=== PATIENT | male | born 1980 | race Two or more races ===

== ENCOUNTER 2025-05-17 15:46 | Inpatient (IN) | payer SELFPAY ==
[2025-05-17 15:59] VITALS: BP 152/78; PULSE 82; RESP 20; TEMP 37.7; O2SAT 97; BMI 34.9
--- NOTE | 2025-05-17 16:11 | XR_ITS ---
Examination: PA lateral chest 2 views Technique: Upright PA lateral chest 2 views Date and time: May 17, 2025, 1623 hrs. Indications: Coughing swelling headaches beginning 5 days ago. Findings: 4.6 cm dense consolidation versus pulmonary mass in the posterior left upper lobe, which actually may be in the superior segment of the left lower lobe Prominent left hilum Normal heart size Impression: Recommend CT chest without contrast follow-up to assess 4.6 cm dense consolidation versus pulmonary mass in the left lung
--- NOTE | 2025-05-17 16:12 | EDNOTE_ITS ---
ED General RME/HPI General Chief complaint: General Adult/Misc Complain Stated complaint: NOT SWEATING, DIZZY, FEVER, CRANE Time Seen by Provider: 05/17/25 16:00 Arrival date/time: 05/17/25 15:46 44-year-old male, traveling from [place], reports with complaints of 2 to 3-day history of fever headaches cough congestion and fatigue. Per states that has been taken [id number] medications with no improvement of symptoms. Patient denies any chest pain shortness of breath or abdominal pain. Patient states he vomited once today but he attributed to being out in the heat. He denies known TB exposures or history of TB. Limitations: no limitations Related Data Home Medications ?Medication ?Instructions ?Recorded ?Confirmed atorvastatin 10 mg tablet 10 mg PO DAILY 05/17/2512/06 ibuprofen 800 mg tablet 800 mg PO PRN PRN pain 05/1705/17/25 pantoprazole 40 mg tablet,delayed 40 mg PO DAILY 05/1705/17/25 release Allergies Allergy/AdvReac Type Severity Reaction Status Date / Time No Known Allergies Allergy Verified 05/17/25 15:50 Review of Systems Constitutional Constitutional: Denies chills, Reports fever(s) and Denies headache(s) ENT Ears, Nose, Mouth, and Throat: Denies otalgia, Denies headache(s) and Denies post nasal drip Cardiovascular Cardiovascular: Denies chest pain, Denies dyspnea and Denies syncope Respiratory Respiratory: Reports cough and Denies dyspnea Gastrointestinal Gastrointestinal: Denies abdominal pain, Reports nausea and Reports vomiting Musculoskeletal Musculoskeletal: Reports arthralgias and Reports myalgias Integumentary/Breasts Skin/Breast: Denies skin swelling and Denies unusual bruising Neurologic Neurologic: Denies headache(s) and Denies syncope Past Medical History Social History SMOKING STATUS: Current some day smoker ED Exam General Limitations: Present no limitations General appearance: Present alert and in no apparent distress Head Head exam: Present atraumatic Eye Eye exam: Present normal appearance, PERRL and EOMI ENT ENT exam: Present normal exam, normal oropharynx and mucous membranes moist Neck Neck exam: Present normal inspection, full ROM and trachea midline Chest Chest inspection: Present normal inspection and symmetric chest wall rise Respiratory Respiratory exam: Present normal lung sounds bilaterally Cardiovascular Cardiovascular exam: Present regular rate, normal rhythm and normal heart sounds Abdominal Exam Abdominal exam: Present soft and normal bowel sounds Extremities Exam Extremities exam: Present normal inspection and full ROM Back Exam Back exam: Present normal inspection and full ROM Neurological Exam Neurological exam: Present alert, oriented X3 and CN II-XII intact Psychiatric Psychiatric exam: Present normal affect and normal mood Skin Skin exam: Present warm, dry, intact and normal color Course Course Course Narrative: [facility] [address] [place] [address] [facility] Report Signed Patient: SHAWNA MOREL Record#: [id number] Birthdate: 1980 Age/Sex: 44 / M Location: [facility] Attending Dr: Ordering Physician: Alonso Ramachandran PA-C Date of Service: 05/17/25 Procedure(s): CT chest wo con Accession Number(s): [id number] cc: Dylan Chen MD; NO PRIMARY/FAMILY,PHYSICIAN; Alonso Ramachandran PA-C~ Examination: CT chest, without intravenous contrast. Sagittal and coronal 2-D reconstructions. Exam date and time: May 17, 2025, 1832 hrs. Indications: Congestion coughing fever beginning 3 days ago, dense consolidation versus pulmonary mass in the left lung 4.6 cm on chest x-ray today CTDI:vol (mGy) 14.9 DLP: (mGycm) 534 Technique: Multiple 3.0 mm axial sections of the chest to been obtained. Bone and lung density settings are obtained. Sagittal and coronal 2-D reconstructions have been obtained. Low dose protocols were performed. One or more of the following dose reduction techniques were used; automated exposure control, adjustment of the mA and/or KV according to patient size, use of iterative reconstruction technique. Findings: No thoracic aortic aneurysm dilatation Pulmonary artery segments are not enlarged. Mild calcification left anterior descending coronary artery. No paratracheal tracheobronchial or bronchopulmonary adenopathy. Cavitary pulmonary mass, 2.6 x 3.6 cm in the superior segment left lower lobe Too numerous to count bilateral subcentimeter pulmonary nodules No visualized liver or splenic lesion Contracted gallbladder No pancreatic mass No hydronephrosis Impression: 3.6 x 2.6 cm cavitary mass in the superior segment left lower lobe with numerous bilateral subcentimeter pulmonary nodules Highest on the differential list is infectious processes including active tuberculosis, coccidioidomycosis, pulmonary neoplasm less likely but not excluded Dictated By: Dylan Chen MD Signed By: <Electronically signed by Dylan Chen MD in OV> 05/17/25 185 DD/ 184 TD/TT: 05/17/25 184 Orthodontic Laboratory Technician: ROMEL Quality Measures none Orders Category Date Time Status Admit to Inpatient Status Routine Admission 05/17/25 22:09 Active Patient Condition Routine Admission 05/17/25 22:09 Ordered Activity as Tolerated Routine Care 05/17/25 22:10 Ordered Bedside COVID-19 Antigen Test NOW Care 05/17/25 16:11 Active Bedside Influenza A&B Antigen Test NOW Care 05/17/25 16:11 Completed COVID-19 Screening Questionnaire NOW Care 05/17/25 21:28 Active Decision to Admit X1 Care 05/17/25 21:28 Completed Flu & Pneumonia Vaccine Screen ONCE Care 05/17/25 22:08 Active Notify provider NEEDED Care 05/17/25 22:09 Active Sequential Compression Device QSHIFT Care 05/17/25 22:08 Active Diet Regular Diet 05/18/[address] chest wo con Stat Exams 05/17/25 17:52 Completed XR chest 2V Stat Exams 05/17/25 16:11 Completed CBC AM DRAW Lab 05/18/25 05:00 Ordered CBC AM DRAW Lab 05/19/25 05:00 Ordered CBC AM DRAW Lab 05/20/25 05:00 Ordered CBC Stat Lab 05/17/25 17:40 Completed Cocci Serology, Unk History Stat Lab 05/17/25 17:40 Received Comprehensive Metabolic Panel AM DRAW Lab 05/18/25 05:00 Ordered Comprehensive Metabolic Panel AM DRAW Lab 05/19/25 05:00 Ordered Comprehensive Metabolic Panel AM DRAW Lab 05/20/25 05:00 Ordered Magnesium AM DRAW Lab 05/18/25 05:00 Ordered Magnesium AM DRAW Lab 05/19/25 05:00 Ordered Magnesium AM DRAW Lab 05/20/25 05:00 Ordered Phosphorous AM DRAW Lab 05/18/25 05:00 Ordered Phosphorous AM DRAW Lab 05/19/25 05:00 Ordered Phosphorous AM DRAW Lab 05/20/25 05:00 Ordered Thyroid Stimulating Hormone AM DRAW Lab 05/18/25 05:00 Ordered Urinalysis Routine Lab 05/17/25 22:12 Ordered Acetaminophen Tab [Tylenol ES Tab] Med 05/17/25 20:07 Discontinued 1,000 mg PO X1 ONE Acetaminophen Tab [Tylenol Tab] Med 05/17/25 22:08 Active 650 mg PO Q6H PRN Ondansetron Inj [Zofran Inj] Med 05/17/25 22:08 Active 4 mg IVP Q6H PRN Pantoprazole [Protonix] Med 05/18/25 09:00 Active 40 mg PO QDAY Code Status Routine Oth 05/17/25 22:08 Ordered Reevaluation(s) Reevaluation #1: 44-year-old male reports with cough congestion body aches. Patient's chest x- ray and CT indicates consolidation left upper lobe rule out TB versus valley fever. Patient is admitted under the hospitalist in isolation and will be tested for active TB in the morning Vital Signs Vital signs: Vital Signs Temperature 99.9 F 05/17/25 15:59 Pulse Rate 82 05/17/25 15:59 Respiratory Rate 20 05/17/25 15:59 Blood Pressure 152/78 H 05/17/25 15:59 Pulse Oximetry (%) 97 05/17/25 15:59 Oxygen Delivery Method Room Air 05/17/25 15:59 Discharge Plan Plan Patient Disposition: Admit Acute Care w/in Hospital Problem List Clinical Impression: Lower respiratory tract infection MDM Medication Administration(s) Medication Administration History Acetaminophen (Acetaminophen 325 Mg Tablet) 650 mg PO Q6H PRN PRN Reason: PAIN SCALE 1-3 (mild Stop: 06/16/25 22:07 Ondansetron HCl (Ondansetron Inj 2 Mg/Ml Inj 2 Ml) 4 mg IVP Q6H PRN; Protocol PRN Reason: NAUSEA OR VOMITING Stop: 06/16/25 22:07 Pantoprazole Sodium (Pantoprazole 40 Mg Tablet) 40 mg PO QDAY PRISCILLA Stop: 06/17/25 08:59 Discontinued Medications Acetaminophen (Acetaminophen 500 Mg Tablet) 1,000 mg PO X1 ONE Stop: 05/17/25 20:08 Last Admin: 05/17/25 20:21 Dose: 1,000 mg Documented By: CIERA Ibuprofen (Ibuprofen Tab 400 Mg Tablet) 400 mg PO X1 ONE Stop: 05/17/25 23:02 Last Admin: 05/17/25 23:57 Dose: 400 mg Documented By: [email or web address] Sodium Chloride (Sodium Chloride Rt 10% 15 Ml Nebu) 5 ml INH X1 ONE Stop: 05/17/25 23:11 Last Admin: 05/17/25 23:42 Dose: 5 ml Documented By: YAMEL
--- NOTE | 2025-05-17 17:52 | XR_ITS ---
Examination: CT chest, without intravenous contrast. Sagittal and coronal 2-D reconstructions. Exam date and time: May 17, 2025, 1832 hrs. Indications: Congestion coughing fever beginning 3 days ago, dense consolidation versus pulmonary mass in the left lung 4.6 cm on chest x-ray today CTDI:vol (mGy) 14.9 DLP: (mGycm) 534 Technique: Multiple 3.0 mm axial sections of the chest to been obtained. Bone and lung density settings are obtained. Sagittal and coronal 2-D reconstructions have been obtained. Low dose protocols were performed. One or more of the following dose reduction techniques were used; automated exposure control, adjustment of the mA and/or KV according to patient size, use of iterative reconstruction technique. Findings: No thoracic aortic aneurysm dilatation Pulmonary artery segments are not enlarged. Mild calcification left anterior descending coronary artery. No paratracheal tracheobronchial or bronchopulmonary adenopathy. Cavitary pulmonary mass, 2.6 x 3.6 cm in the superior segment left lower lobe Too numerous to count bilateral subcentimeter pulmonary nodules No visualized liver or splenic lesion Contracted gallbladder No pancreatic mass No hydronephrosis Impression: 3.6 x 2.6 cm cavitary mass in the superior segment left lower lobe with numerous bilateral subcentimeter pulmonary nodules Highest on the differential list is infectious processes including active tuberculosis, coccidioidomycosis, pulmonary neoplasm less likely but not excluded
[2025-05-17 18:01] LABS: Basophils # (Auto) 0.1 Thou/mm3 (0.0-0.2); Basophils % (Auto) 1 % (0-2.5); Eosinophils # (Auto) 0.4 Thou/mm3 (0.0-0.5); Eosinophils % (Auto) 4 % (0-10); Hematocrit 39.9 % (41.0-53.0); Hemoglobin 13.9 g/dL (13.5-16.0); Immature Granulocytes Auto 0.07 Thou/mm3 (0.00-0.00); Lymphocytes # (Auto) 1.8 Thou/mm3 (1.0-4.8); Lymphocytes % (Auto) 16 % (10-50); Mean Corpuscular HGB Conc 34.8 g/dl (31.0-37.0); Mean Corpuscular Hemoglobin 29.8 pg (25.0-35.0); Mean Corpuscular Volume 86 fL (80-100); Monocytes # (Auto) 1.2 Thou/mm3 (0.0-0.8); Monocytes % (Auto) 11 % (0-12); Neutrophils # (Auto) 7.9 Thou/mm3 (1.8-7.7); Neutrophils % (Auto) 69 % (37-80); Nucleated Red Blood Cell # 0.00 Thou/mm3 (0.00-0.00); Nucleated Red Blood Cell % 0 /100 WBC (0); Platelet Count 291 Thou/mm3 (140-440); RDW Standard Deviation 36.3 fL (35.1-43.9); Red Blood Count 4.66 Miln/mm3 (4.50-5.90); White Blood Count 11.5 Thou/mm3 (3.8-10.6)
[2025-05-17] MEDS: ACETAMINOPHEN 500 MG TABLET 1000 MG PO (20:21)
[2025-05-17 21:32] VITALS: TEMP 37.9
[2025-05-17 21:33] VITALS: BP 125/82; PULSE 89; RESP 18; TEMP 37.9; O2SAT 97
[2025-05-17 22:59] VITALS: BMI 35.1
[2025-05-17 23:02] VITALS: BP 117/67; PULSE 87; RESP 14; TEMP 37.7; O2SAT 99
--- NOTE | 2025-05-17 23:12 | PD.RESHP ---
Documentation for date of: 05/17/25 HPI History of Present Illness Chief complaint: Fever, chills, bodyaches, headache History of present illness: Angelo is a 44-year-old male with a history of gastric sleeve surgery who the presented to the ED on 05/17/2025 with chief complaints of fever, chills, body ache and headache. Patient reports that since last Thursday he has been feeling fatigued, fever of 102-104, chills, cough,headache, took Tylenol with mild relief. However for the past 2 days worsening in the symptoms but no more cough. Patient reports that he works in a [employer], where he is regularly exposed to significant dust. He states that he typically sweats heavily during outdoor work. However, this morning while working outside in the sun he noticed an absence of sweating despite the high temperature. This unusual change with headache, fever, body aches concerned him, prompting him to present to the ED for evaluation. Patient denies recent sick contact, shortness of breath, hemoptysis, cough, chest pain, weight loss, changes in bowel movement, urinary frequency and urgency. ED Course: -Initial vitals were BP 152/70, pulse 82, respiratory 20, temperature 99.9, O2 sat 99% -Labs significant for WBC 11.5, HCT 39.9, glucose 140, -Imaging included chest x-ray showed 4.6 cm dense consolidation versus pulmonary mass in posterior left upper lobe, chest CT showed cavitary mass in superior segment left lower lobe with numerous bilateral pulmonary nodules -In the ED, patient was given acetaminophen, NS bolus, ibuprofen. -Patient was admitted for TB versus cocci rule out. Review of Systems Review of systems otherwise negative except what is mentioned above. Past Medical History: Hypertension, hyperlipidemia, type 2 diabetes mellitus (resolved s/p gastric sleeve) Family History: Noncontributory Surgical History: Gastric sleeve 2 years ago, cholecystectomy Social History: Denies history of smoking, denies current alcohol use, denies recreational drug use Current Medications: (Source: ) Allergies: No known drug allergies Exam Vital Signs Temp Pulse Resp BP Pulse Ox O2 Del Method 99.8 F 87 14 117/67 99 Room Air 05/17/25 23:02 05/17/25 23:05/17/25 23:05/17/25 23:05/17/25 23:25 23:02 Narrative Exam General: Alert, acute distress.Conversational and non-toxic appearing. Skin: Warm, dry, intact. No rash or ecchymoses. Head: Normocephalic, atraumatic. Eye: Normal conjunctiva, PERRL. Throat: Oral mucosa moist. No obvious lesions in oropharynx. Cardiovascular: Regular rate and rhythm, no murmur, +S1/S2. Respiratory: Lungs are clear to auscultation, respirations unlabored, no crackles, no wheezing. Gastrointestinal: Soft, nontender, non-distended. No guarding or rebound tenderness. Extremities: No edema, no cyanosis, no clubbing. Neuro: Alert and oriented x3.No focal deficits observed. Conversant, moving all extremities. No overt cerebellar signs/incoordination. Psychiatric: Cooperative, appropriate affect Results: Labs 05/18/25 04:58 05/18/25 04:58 Labs: Short CBC 05/17/25 Range/Units 17:40 WBC 11.5 H (3.8-10.6) Thou/mm3 Hgb 13.9 (13.5-16.0) g/dL Hct 39.9 L (41.0-53.0) % Plt Count 291 (140-440) Thou/mm3 Quality Measures Quality Measures none Medications Home Medications and Allergies Home Medications ?Medication ?Instructions ?Recorded ?Confirmed ?Type atorvastatin 10 mg tablet 10 mg PO DAILY 05/17/25 05/17/25 History ibuprofen 800 mg tablet 800 mg PO PRN PRN pain 05/17/25 05/17/25 History pantoprazole 40 mg tablet,delayed 40 mg PO DAILY 05/17/25 05/17/25 History release Allergies Allergy/AdvReac Type Severity Reaction Status Date / Time No Known Allergies Allergy Verified 05/17/25 15:50 Visit Medications Acetaminophen (Acetaminophen 325 Mg Tablet) 650 mg PO Q6H PRN PRN Reason: PAIN SCALE 1-3 (mild Stop: 06/16/25 22:07 Ondansetron HCl (Ondansetron Inj 2 Mg/Ml Inj 2 Ml) 4 mg IVP Q6H PRN; Protocol PRN Reason: NAUSEA OR VOMITING Stop: 06/16/25 22:07 Pantoprazole Sodium (Pantoprazole 40 Mg Tablet) 40 mg PO QDAY PRISCILLA Stop: 06/17/25 08:59 Sodium Chloride (Sodium Chloride Rt 10% 15 Ml Nebu) 5 ml INH X1 ONE Stop: 05/17/25 23:11 Discontinued Medications Acetaminophen (Acetaminophen 500 Mg Tablet) 1,000 mg PO X1 ONE Stop: 05/17/25 20:08 Last Admin: 05/17/25 20:21 Dose: 1,000 mg Ibuprofen (Ibuprofen Tab 400 Mg Tablet) 400 mg PO X1 ONE Stop: 05/17/25 23:02 Assessment & Plan Plan Angelo is a 44-year-old male with a history of gastric bypass surgery, hypertension the presented to the ED on 05/17/2025 with chief complaints of fever, chills, myalgia and headache. Admitted for possible TB vs Coccidioidomycosis rule out and evaluation. # Lower respiratory tract infection # Tuberculosis vs Coccidioidomycosis work up #Pulmonary cavitary lesion #Shortness of breath Patient presented with fever, headache, chills, fatigue, and myalgia concerning for pulmonary infectious process. He reports frequent inhalation of dust while working on an [employer], which increases risk of exposure to airborne pathogens. Given his environmental exposure and symptomology there is concern for tuberculosis versus coccidioidomycosis (valley fever). COVID-19 negative, influenza Aand B negative. Chest x-ray showed 4.6 cm dense consolidation versus pulmonary mass in the posterior left upper lobe Chest CT showed Cavitary pulmonary mass, 2.6 x 3.6 cm in the superior segment left lower lobe, too numerous to count bilateral subcentimeter pulmonary nodules - Coccidioides IgM - QuantiFERON TB - AFB sputum, - Airbone precaution #Headache Patient bandlike headache that is intermittent. -Ibuprofen 400mg as needed for pain # Hypertension Denies history of chronic hypertension but reports intermittent use of his parents noprescribed metoprolol 50 mg once daily as needed. He discontinue treatment for HTN following gastric bypass surgery, after which his blood pressure reportedly normalized. -monitor vitals # Hyperlipidemia Home medication atorvastatin 10mg - Follow-up lipid panel #Gastric bypass surgery #Hx of Type 2 DM Patient reports history of diabetes that resolved after gastric bypass surgery. - Pending A1c #Cholecystectomy Hospital management: Lines: peripheral IV Diet: regular GI prophylaxis: pantoprazole DVT prophylaxis: NA Disposition: TB vs coccidioidomycosis r/o CODE STATUS: Full code Patient seen and assessed under supervision of attending physician Dr.Alhalaibeh Janette Back MD PGY-1, Internal Medicine Please note: this document was transcribed using voice recognition technology; minor inaccuracies may be present. Attending Provider Attestation/Addendum After examination of the patient and review of the clinical data I feel that this patient needs admission to the hospital for further treatment/evaluation. I Liliana Galicia MD, attest that I was physically present for alcantara portions of evaluation, and examined patient, labs and imagings and plan of care were discussed with IM residents team, and I agree with the findings and plans documented above.
[2025-05-17 23:30] VITALS: BMI 35.2
[2025-05-17] MEDS: SODIUM CHLORIDE RT 10% 15 ML NEBU 5 ML INH (23:42)
[2025-05-17 23:48] VITALS: PULSE 75; RESP 17; O2SAT 98
[2025-05-17] MEDS: IBUPROFEN TAB 400 MG TABLET PO (23:57)
[2025-05-18] VITALS (8 sets, daily range): BP systolic 108–142; BP diastolic 70–92; PULSE 76–94; RESP 16–19; TEMP 36.2–38.5; O2SAT 95–99
[2025-05-18 00:25] LABS: Cult AFB Sendout- Sputum* See Sep Rpt
[2025-05-18 00:27] LABS: Alanine Aminotransferase 27 U/L (10-49); Albumin, Serum 4.1 gm/dL (3.5-5.0); Albumin/Globulin Ratio 1.4 (1.2-2.2); Alkaline Phosphatase 79 U/L (46-116); Anion Gap 12 (7-16); Aspartate Amino Transferase 22 U/L (0-34); BUN/Creatinine Ratio 13 Ratio (12-20); Bilirubin,Total 0.5 mg/dL (0.3-1.2); Blood Urea Nitrogen 13 mg/dL (9-23); Calcium 9.5 mg/dL (8.3-10.6); Calcium (Corrected) 9.5 mg/dL (8.5-10.1); Carbon Dioxide 25.3 mMol/L (20.0-31.0); Chloride 101 mMol/L (98-107); Creatinine (Component) 1.0 mg/dL (0.6-1.3); Estimated Creatinine Clearance 112.9 mL/min (>60); Globulin 2.9 gm/dL (2.3-3.5); Glucose 140 mg/dL (74-106); Osmolality,Calculated 277 (275-295); Potassium 3.5 mMol/L (3.4-5.1); Sodium 138 mMol/L (136-145); Total Protein 7.0 gm/dL (5.7-8.2); eGFR > 60 See Note
--- NOTE | 2025-05-18 04:49 | PC.NURSE ---
[facility] downtime [phone].
[2025-05-18 05:32] LABS: Quantiferon-TB* See Sep Rpt
[2025-05-18 05:37] LABS: Basophils # (Auto) 0.1 Thou/mm3 (0.0-0.2); Basophils % (Auto) 1 % (0-2.5); Eosinophils # (Auto) 0.5 Thou/mm3 (0.0-0.5); Eosinophils % (Auto) 5 % (0-10); Hematocrit 39.4 % (41.0-53.0); Hemoglobin 13.2 g/dL (13.5-16.0); Immature Granulocytes Auto 0.07 Thou/mm3 (0.00-0.00); Lymphocytes # (Auto) 2.0 Thou/mm3 (1.0-4.8); Lymphocytes % (Auto) 18 % (10-50); Mean Corpuscular HGB Conc 33.5 g/dl (31.0-37.0); Mean Corpuscular Hemoglobin 28.6 pg (25.0-35.0); Mean Corpuscular Volume 85 fL (80-100); Monocytes # (Auto) 1.3 Thou/mm3 (0.0-0.8); Monocytes % (Auto) 11 % (0-12); Neutrophils # (Auto) 7.2 Thou/mm3 (1.8-7.7); Neutrophils % (Auto) 65 % (37-80); Nucleated Red Blood Cell # 0.00 Thou/mm3 (0.00-0.00); Nucleated Red Blood Cell % 0 /100 WBC (0); Platelet Count 264 Thou/mm3 (140-440); RDW Standard Deviation 35.7 fL (35.1-43.9); Red Blood Count 4.62 Miln/mm3 (4.50-5.90); White Blood Count 11.1 Thou/mm3 (3.8-10.6)
[2025-05-18 05:39] LABS: Bilirubin,Urine Negative (Negative); Blood,Urine Negative (Negative); Clarity,Urine Turbid (Clear/Hazy); Collection Type, Urine Clean Catch; Color,Urine Yellow (Lt Yel-Yel); Glucose, Urine Negative (Negative); Hyaline Casts,Urine < 1 /hpf (0-1); Ketones,Urine Negative (Negative); Leukocyte Esterase,Urine Negative (Negative); Nitrite,Urine Negative (Negative); PH,Urine 6.0 (5.0-7.0); Protein,Urine 2+ (Neg - Trace); RBC,Urine 1 /hpf (0-3); Specific Gravity,Urine 1.032 (1.001-1.035); Squamous Epithelial Cell,Urine < 1 /hpf (0-5); Urobilinogen,Urine Negative mg/dL (0.0-1.0); WBC,Urine 1 /hpf (0-5)
[2025-05-18 05:56] LABS: Glucose Estimated Average 128 mg/dL (80-131); Hemoglobin A1C 6.1 % Hgb (4.8-6.0)
[2025-05-18 05:59] LABS: Alanine Aminotransferase 27 U/L (10-49); Albumin, Serum 4.2 gm/dL (3.5-5.0); Albumin/Globulin Ratio 1.4 (1.2-2.2); Alkaline Phosphatase 80 U/L (46-116); Anion Gap 10 (7-16); Aspartate Amino Transferase 23 U/L (0-34); BUN/Creatinine Ratio 12 Ratio (12-20); Bilirubin,Total 0.4 mg/dL (0.3-1.2); Blood Urea Nitrogen 12 mg/dL (9-23); Calcium 10.0 mg/dL (8.3-10.6); Calcium (Corrected) 10.0 mg/dL (8.5-10.1); Carbon Dioxide 28.1 mMol/L (20.0-31.0); Chloride 102 mMol/L (98-107); Creatinine (Component) 1.0 mg/dL (0.6-1.3); Estimated Creatinine Clearance 113.1 mL/min (>60); Globulin 2.9 gm/dL (2.3-3.5); Glucose 133 mg/dL (74-106); Magnesium 1.9 mg/dL (1.6-2.6); Osmolality,Calculated 281 (275-295); Phosphorous 3.7 mg/dL (2.4-5.1); Potassium 4.5 mMol/L (3.4-5.1); Sodium 140 mMol/L (136-145); Thyroid Stimulating Hormone 0.59 uIU/mL (0.55-4.78); Total Protein 7.1 gm/dL (5.7-8.2); eGFR > 60 See Note
[2025-05-18] MEDS: PANTOPRAZOLE 40 MG TABLET PO (08:42)
[2025-05-18] MEDS: ACETAMINOPHEN 325 MG TABLET 650 MG PO ×2 (08:45→17:47)
[2025-05-18 10:08] LABS: Cult AFB Sendout- Sputum* See Sep Rpt
--- NOTE | 2025-05-18 10:12 | PC.RT ---
[employer] SAMPLE COLLECTED AND BROUGHT TO LAB
[2025-05-18 12:02] LABS: Cocid Sro, CF/ID (UCD) NO CHG* See Sep Rpt
[2025-05-18 12:02] LABS: Cocci Serology, IgM Positive (Negative)
[2025-05-18] MEDS: HYDROcodone/APAP 5/325 TABLET 1 TAB PO ×2 (12:15→22:19)
--- NOTE | 2025-05-18 12:28 | PC.SS ---
SS spoke to patient by phone regarding d/c plan. Pt is alert/oriented. Pt was admitted for TB vs Valley Fever RO. Pt confirmed demographic and contact information is correct on facesheet. Pt resides with both parents. Pt ambulates independently without assistance or DME. Pt is ok with all ADLs. Pt states he is from [place] and was visiting his cousin, prior to being hospitalized. Pt is currently self pay. SS spoke to Sandra, financial services education consultant who explained patient's medical is currently in active and his health insurance is from [place]. Pt is aware to follow up with his health insurance. Patient?s pharmacy of choice is [facility]. Pt named hsi friend, Fausto Martinez medical decision maker if he is unable. Patient?s choice is to return home upon d/c. Pt states he is not diabetic and is not on dialysis. Pt followed up with PCP 2-3 months ago. D/C plan: Return home Next of Kin: Fausto Martinez, friend, phone# [phone] PCP: Dr. Sorto from [facility] Address: Correct on facesheet
--- NOTE | 2025-05-18 13:50 | ESPR_ITS ---
<Statement entered by Harlan Cruz MD - 05/18/25 15:14> Overnight admission for 44-year-old male with past medical history of gastric bypass for obesity presenting with episode of fever/chills, myalgia, dry cough, night sweats and shortness of breath. Imaging studies completed in the ED showed pulmonary mass in the left upper lobe. Patient states that he is traveling from [place] and is currently working at a construction site in town. He does not have typical risk factors for tuberculosis as he has not been incarcerated, lives in dormitory's, traveled in endemic areas or had recent exposure to TB. Patient was admitted for TB rule outs, cocci and Aspergillus lab results pending as well. On examination, patient appears stable and on room air without any concerning symptoms or findings. AFB sputum samples have been sent out and we will follow-up with results. Patient remains in isolation at this time. I have personally seen and examined the patient. I agree with the resident's assessment and plan as documented below. Harlan Cruz DO PGY-2 Internal Medicine - [facility] Documentation for date of: 05/18/25 Subjective Subjective Interval history: Overnight admission. Presenting for 2-day history of fever, nonproductive cough, myalgias, and headache. CT chest showed superior left cavitary lesion, with concern for TB versus cocci versus malignancy. Denies any recent weight loss, hemoptysis, night sweats. He lives at [facility] and is only in town for construction work. Was never tested for TB. Denies recent sick contacts or travel outside of [place]. Tested positive for cocci IgM. Started on Diflucan 100 mg daily. Pending Aspergillus, quant to [place] TB, AFB sputum cultures. Patient was currently in isolation with airborne precautions. Exam Vital Signs Temp Pulse Resp BP Pulse Ox O2 Del Method 98.2 F 76 16 137/83 H 99 Room Air 05/18/25 08:00 05/18/25 08:00 05/18/25 08:00 05/18/25 08:00 05/18/25 08:00 05/18/25 08:00 Narrative Exam Physical Exam General: Awake and in no acute distress. Conversational and non-toxic appearing. HEENT: Normocephalic, atraumatic, mucous membranes moist. Heart: Regular rate and rhythm, normal S1 and S2, no murmurs. Lungs: Decreased lung sounds in the left upper lobe. Clear in all other areas. Abdomen: Soft, nondistended, nontender, positive bowel sounds. No guarding or rebound tenderness. Neurologic: Alert and oriented x3, no gross neurological deficit, and patient able to move all 4 extremities. Extremities: No edema. Skin: No rash or ecchymoses. Objective Labs 05/19/25 06:06 05/19/25 06:06 Labs: Laboratory Results - last 24 hr 05/17/25 05/17/25 05/18/25 17:40 23:27 04:45 WBC 11.5 H RBC 4.66 Hgb 13.9 Hct 39.9 L MCV 86 MCH 29.8 MCHC 34.8 RDW Std Deviation 36.3 Plt Count 291 Neut % (Auto) 69 Lymph % (Auto) 16 [place] % (Auto) 11 Eos % (Auto) 4 Baso % (Auto) 1 Neut # (Auto) 7.9 H Lymph # (Auto) 1.8 [place] # (Auto) 1.2 H Eos # (Auto) 0.4 Baso # (Auto) 0.1 Immature Gran # (Auto) 0.07 H Absolute Nucleated RBC 0.00 Immature Gran % 1 H Nucleated RBC % 0 Sodium 138 Potassium 3.5 Chloride 101 Carbon Dioxide 25.3 Anion Gap 12 BUN 13 Creatinine 1.0 Estim Creat Clear Calc 112.9 eGFR > 60 BUN/Creatinine Ratio [address] Glu mg/dL Hemoglobin A1c Calculated Osmolality 277 Calcium 9.5 Corrected Calcium 9.5 Phosphorus Magnesium Total Bilirubin 0.5 AST 22 ALT 27 Alkaline Phosphatase 79 Total Protein 7.0 Albumin 4.1 Globulin 2.9 Albumin/Globulin Ratio 1.4 TSH Ur Collection Type Clean Catch Urine Color Yellow Urine Clarity Turbid A Urine pH 6.0 Ur Specific [place] 1.032 Urine Protein 2+ A Urine Glucose (UA) Negative Urine Ketones Negative Urine Blood Negative Urine Nitrite Negative Urine Bilirubin Negative Urine Urobilinogen (Auto) Negative Ur Leukocyte Esterase Negative Urine RBC 1 Urine WBC 1 Ur Squamous Epith Cells < 1 Urine Bacteria None Hyaline Casts < 1 Coccidioides IgM Ab Positive A 05/18/25 04:58 WBC 11.1 H RBC 4.62 Hgb 13.2 L Hct 39.4 L MCV 85 MCH 28.6 MCHC 33.5 RDW Std Deviation 35.7 Plt Count 264 Neut % (Auto) 65 Lymph % (Auto) 18 [place] % (Auto) 11 Eos % (Auto) 5 Baso % (Auto) 1 Neut # (Auto) 7.2 Lymph # (Auto) 2.0 [place] # (Auto) 1.3 H Eos # (Auto) 0.5 Baso # (Auto) 0.1 Immature Gran # (Auto) 0.07 H Absolute Nucleated RBC 0.00 Immature Gran % 1 H Nucleated RBC % 0 Sodium 140 Potassium 4.5 D Chloride 102 Carbon Dioxide 28.1 Anion Gap 10 BUN 12 Creatinine 1.0 Estim Creat Clear Calc 113.1 eGFR > 60 BUN/Creatinine Ratio 12 Glucose [address] Glu mg/dL 128 Hemoglobin A1c 6.1 H Calculated Osmolality 281 Calcium 10.0 Corrected Calcium 10.0 Phosphorus 3.7 Magnesium 1.9 Total Bilirubin 0.4 AST 23 ALT 27 Alkaline Phosphatase 80 Total Protein 7.1 Albumin 4.2 Globulin 2.9 Albumin/Globulin Ratio 1.4 TSH 0.59 Ur Collection Type Urine Color Urine Clarity Urine pH Ur Specific [place] Urine Protein Urine Glucose (UA) Urine Ketones Urine Blood Urine Nitrite Urine Bilirubin Urine Urobilinogen (Auto) Ur Leukocyte Esterase Urine RBC Urine WBC Ur Squamous Epith Cells Urine Bacteria Hyaline Casts Coccidioides IgM Ab Quality Measures Quality Measures none Assessment & Plan Assessment Current Active Medications: Generic Name Dose Route Start Last Admin Trade Name Freq PRN Reason Stop Dose Admin Acetaminophen 650 mg 05/18/25 08:48 Acetaminophen 325 Mg Tablet PO 06/16/25 22:07 Q6H PRN Pain 1-3 or fever >100.3 Ondansetron HCl 4 mg 05/17/25 22:08 Ondansetron Inj 2 Mg/Ml Inj 2 Ml IVP 06/16/25 22:07 Q6H PRN NAUSEA OR VOMITING Protocol Pantoprazole Sodium 40 mg 05/18/25 09:00 05/18/25 08:42 Pantoprazole 40 Mg Tablet PO 06/17/25 08:59 40 mg QDAY PRISCILLA Administration Plan Patient is a 44-year-old male with past medical history of hypertension, hyperlipidemia, pre-diabetes, s/p gastric sleeve 2022 for 2-day history of flulike symptoms and later found to have left upper lobe cavitary lesion on CT, admitted for TB versus cocci rule out. #Superior left cavitary lesion #c/f TB versus cocci #Headache Presented with 2-day history of fever, chills, body aches, later followed by dry nonproductive cough. Denies any weight loss, hemoptysis, night sweats. Denies recent travel or sick contacts. 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 Has never been tested for TB. Given environmental exposure, likely cocci. Per patient he went to an urgent care center prior to admission, tested negative for COVID-19 and influenza A&B. CXR 05/17 showed 4.6 cm dense consolidation versus pulmonary mass in the posterior left upper lobe Chest CT showed Cavitary pulmonary mass, 2.6 x 3.6 cm in the superior segment left lower lobe, too numerous to count bilateral subcentimeter pulmonary nodules Cocci IgM positive. Plan: ? Diflucan 400 mg daily - Pending mycobacterial culture, Aspergillus, TB test quant ? Pending AFB sputum cultures - Airbone precaution - Tylenol for pain #Hypertension Denies history of chronic hypertension but reports intermittent use of his parents noprescribed metoprolol 50 mg once daily as needed. He discontinue treatment for HTN following gastric bypass surgery, after which his blood pressure reportedly normalized. - CTM BP #HLD All medication includes atorvastatin 10 mg daily. - Pending lipid panel #NIDDM Hgb A1c 05/18 6.1. Per patient, previously NIDDM2 resolved s/p gastric bypass. - CTM glucose - Consider SSI if elevated Health Maintenance Disposition: med surg to rule out TB and cocci DVT prophylaxis: SCDs GI prophylaxis: Protonix Diet: Regular CODE STATUS: FULL Patient plan of care was discussed with the resident, Dr. Cruz, and attending physician, Dr. Julio. Amelie Burdick, PGY-1 Attending Provider Attestation/Addendum Luz, Shonda Julio, , attest that I was physically present for the alcantara portions of the service and evaluated the patient with the resident and I reviewed and discussed the case with the resident and agree with the resident's findings and plans of care as documented above Patient seen eval this a.m. 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 He began having a dry cough and fevers at night since Thursday, about 1 week ago. He denies any history of TB exposures or incarceration or enlistment. He also denies any recent travel. Suspect coccidiomycosis as patient has been working outdoors where there is a lot of dust. Pending AFBs at this time.Patient remains on isolation.
[2025-05-18 16:54] LABS: Cult AFB Sendout- Sputum* See Sep Rpt
[2025-05-18] MEDS: FLUCONAZOLE 100 MG TABLET 400 MG PO (17:41)
[2025-05-18] MEDS: MELATONIN 3 MG TABLET 6 MG PO (21:26)
[2025-05-19] VITALS: BP 118/82; PULSE 81; RESP 18; TEMP 37.3; O2SAT 97
[2025-05-19] MEDS: ACETAMINOPHEN 325 MG TABLET 650 MG PO ×3 (00:47→17:13)
[2025-05-19 04:00] VITALS: BP 124/81; PULSE 69; RESP 18; TEMP 37.1; O2SAT 96
[2025-05-19 06:36] LABS: Basophils # (Auto) 0.1 Thou/mm3 (0.0-0.2); Basophils % (Auto) 1 % (0-2.5); Eosinophils # (Auto) 0.5 Thou/mm3 (0.0-0.5); Eosinophils % (Auto) 5 % (0-10); Hematocrit 37.5 % (41.0-53.0); Hemoglobin 12.9 g/dL (13.5-16.0); Immature Granulocytes Auto 0.08 Thou/mm3 (0.00-0.00); Lymphocytes # (Auto) 1.7 Thou/mm3 (1.0-4.8); Lymphocytes % (Auto) 16 % (10-50); Mean Corpuscular HGB Conc 34.4 g/dl (31.0-37.0); Mean Corpuscular Hemoglobin 29.9 pg (25.0-35.0); Mean Corpuscular Volume 87 fL (80-100); Monocytes # (Auto) 1.2 Thou/mm3 (0.0-0.8); Monocytes % (Auto) 11 % (0-12); Neutrophils # (Auto) 7.3 Thou/mm3 (1.8-7.7); Neutrophils % (Auto) 67 % (37-80); Nucleated Red Blood Cell # 0.00 Thou/mm3 (0.00-0.00); Nucleated Red Blood Cell % 0 /100 WBC (0); Platelet Count 268 Thou/mm3 (140-440); RDW Standard Deviation 37.1 fL (35.1-43.9); Red Blood Count 4.32 Miln/mm3 (4.50-5.90); White Blood Count 10.8 Thou/mm3 (3.8-10.6)
[2025-05-19 07:01] LABS: Alanine Aminotransferase 31 U/L (10-49); Albumin, Serum 4.0 gm/dL (3.5-5.0); Albumin/Globulin Ratio 1.4 (1.2-2.2); Alkaline Phosphatase 78 U/L (46-116); Anion Gap 10 (7-16); Aspartate Amino Transferase 23 U/L (0-34); BUN/Creatinine Ratio 8 Ratio (12-20); Bilirubin,Total 0.4 mg/dL (0.3-1.2); Blood Urea Nitrogen 8 mg/dL (9-23); Calcium 9.6 mg/dL (8.3-10.6); Calcium (Corrected) 9.6 mg/dL (8.5-10.1); Carbon Dioxide 28.5 mMol/L (20.0-31.0); Cardiac Risk Estimate 3.7 RATIO (4.0-6.7); Chloride 100 mMol/L (98-107); Cholesterol 125 mg/dL (132-200); Creatinine (Component) 1.0 mg/dL (0.6-1.3); Estimated Creatinine Clearance 113.1 mL/min (>60); Globulin 2.8 gm/dL (2.3-3.5); Glucose 110 mg/dL (74-106); HDL Cholesterol 34 mg/dL (40-60); LDL Cholesterol,Calculated 68 mg/dL (0-130); Magnesium 1.6 mg/dL (1.6-2.6); Osmolality,Calculated 274 (275-295); Phosphorous 3.4 mg/dL (2.4-5.1); Potassium 4.2 mMol/L (3.4-5.1); Sodium 138 mMol/L (136-145); Total Protein 6.8 gm/dL (5.7-8.2); Triglycerides 114 mg/dL (30-150); eGFR > 60 See Note
[2025-05-19 08:00] VITALS: BP 121/80; PULSE 79; RESP 18; TEMP 36.3; O2SAT 98
[2025-05-19] MEDS: PANTOPRAZOLE 40 MG TABLET PO (08:28)
[2025-05-19] MEDS: FLUCONAZOLE 100 MG TABLET 400 MG PO (08:28)
--- NOTE | 2025-05-19 10:00 | PC.SS ---
Follow up note: AFBs pending for TB rule out. Pt will return home upon d.c
[2025-05-19] MEDS: PROMETHAZINE/DM SYRUP 5 ML DOSE PO ×3 (10:12→21:41)
--- NOTE | 2025-05-19 11:07 | ESPR_ITS ---
<Statement entered by Harlan Cruz MD - 05/19/25 13:45> Patient seen and assessed in hospital bed reporting headache ongoing since admission; moreover, patient usually drinks coffee but in the hospital has been drinking only decaf. Will order Tylenol and follow-up on the patient after he drinks regular coffee. Patient otherwise been diagnosed with cocci which is likely the cause of the patient's lung findings on imaging. Will continue on fluconazole and are awaiting AFB sputum studies to rule out TB. Patient otherwise denies having any concerning symptoms; moreover, will continue to monitor patient for any acute changes. I have personally seen and examined the patient. I agree with the resident's assessment and plan as documented below. Harlan Cruz DO PGY-2 Internal Medicine - [facility] Documentation for date of: 05/19/25 Subjective Subjective Interval history: Overnight, patient was having difficulty sleeping, given melatonin x 1 and [place] 5 x 1 for headache. This morning endorses persistent dry cough and chest soreness, started on Phenergan as needed. Spoke to infection control, because sputum was collected on 05/18, will likely take at least till 05/22 to result. Continue Diflucan 400 mg daily. Anticipate discharge early next week. Exam Vital Signs Temp Pulse Resp BP Pulse Ox O2 Del Method 97.4 F 79 18 121/80 98 Room Air 05/19/25 08:00 05/19/25 08:00 05/19/25 08:00 05/19/25 08:00 05/19/25 08:00 05/19/25 08:00 Narrative Exam Physical Exam General: Awake and in no acute distress. Conversational and non-toxic appearing. HEENT: Normocephalic, atraumatic, mucous membranes moist. Heart: Regular rate and rhythm, normal S1 and S2, no murmurs. Lungs: Decreased lung sounds in the left upper lobe. Clear in all other areas. No wheezing or rhonchi. Abdomen: Soft, nondistended, nontender, positive bowel sounds. No guarding or rebound tenderness. Neurologic: Alert and oriented x3, no gross neurological deficit, and patient able to move all 4 extremities. Extremities: No edema. Skin: No rash or ecchymoses. Objective Labs 05/20/25 04:26 05/20/25 04:26 Labs: Laboratory Results - last 24 hr 05/17/25 05/19/25 17:40 06:06 WBC 10.8 H RBC 4.32 L Hgb 12.9 L Hct 37.5 L MCV 87 MCH 29.9 MCHC 34.4 RDW Std Deviation 37.1 Plt Count 268 Neut % (Auto) 67 Lymph % (Auto) 16 [place] % (Auto) 11 Eos % (Auto) 5 Baso % (Auto) 1 Neut # (Auto) 7.3 Lymph # (Auto) 1.7 [place] # (Auto) 1.2 H Eos # (Auto) 0.5 Baso # (Auto) 0.1 Immature Gran # (Auto) 0.08 H Absolute Nucleated RBC 0.00 Immature Gran % 1 H Nucleated RBC % 0 Sodium 138 Potassium 4.2 Chloride 100 Carbon Dioxide 28.5 Anion Gap 10 BUN 8 L Creatinine 1.0 Estim Creat Clear Calc 113.1 eGFR > 60 BUN/Creatinine Ratio 8 L Glucose 110 H Calculated Osmolality 274 L Calcium 9.6 Corrected Calcium 9.6 Phosphorus 3.4 Magnesium 1.6 Total Bilirubin 0.4 AST 23 ALT 31 Alkaline Phosphatase 78 Total Protein 6.8 Albumin 4.0 Globulin 2.8 Albumin/Globulin Ratio 1.4 Triglycerides 114 Cholesterol 125 L LDL Cholesterol, Calc 68 HDL Cholesterol 34 L Cholesterol/HDL Ratio 3.7 L Coccidioides IgM Ab Positive A Quality Measures Quality Measures none Assessment & Plan Assessment Current Active Medications: Generic Name Dose Route Start Last Admin Trade Name Freq PRN Reason Stop Dose Admin Acetaminophen 650 mg 05/18/25 08:48 05/19/25 09:31 Acetaminophen 325 Mg Tablet PO 06/16/25 22:07 650 mg Q6H PRN Administration Pain 1-3 or fever >100.3 Fluconazole 400 mg 05/18/25 16:30 05/19/25 08:28 Fluconazole 100 Mg Tablet PO 05/25/25 16:29 400 mg QDAY PRISCILLA Administration Ketorolac Tromethamine 15 mg 05/19/25 11:02 Ketorolac Inj 30 Mg/Ml Vial IVP 05/24/25 11:01 Q6HR PRN PAIN SCALE 4-10(Mod-Sev Ondansetron HCl 4 mg 05/17/25 22:08 Ondansetron Inj 2 Mg/Ml Inj 2 Ml IVP 06/16/25 22:07 Q6H PRN NAUSEA OR VOMITING Protocol Pantoprazole Sodium 40 mg 05/18/25 09:00 05/19/25 08:28 Pantoprazole 40 Mg Tablet PO 06/17/25 08:59 40 mg QDAY PRISCILLA Administration Promethazine HCl/Dextromethorphan 5 ml 05/19/25 09:30 05/19/25 10:12 Promethazine/Dm Syrup 5 Ml Dose PO 5 ml Q4HR PRN Administration COUGH Protocol Plan Patient is a 44-year-old male with past medical history of hypertension, hyperlipidemia, pre-diabetes, s/p gastric sleeve 2022 for 2-day history of flulike symptoms and later found to have left upper lobe cavitary lesion on CT, admitted for TB versus cocci rule out. #Superior left cavitary lesion #c/f TB versus cocci #Headache Presented with 2-day history of fever, chills, body aches, later followed by dry nonproductive cough. Denies any weight loss, hemoptysis, night sweats. Denies recent travel or sick contacts. 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 Has never been tested for TB. Given environmental exposure, likely cocci. Per patient he went to an urgent care center prior to admission, tested negative for COVID-19 and influenza A&B. CXR 05/17 showed 4.6 cm dense consolidation versus pulmonary mass in the posterior left upper lobe Chest CT showed Cavitary pulmonary mass, 2.6 x 3.6 cm in the superior segment left lower lobe, too numerous to count bilateral subcentimeter pulmonary nodules Cocci IgM positive. Plan: ? Diflucan 400 mg daily (05/18- - Pending mycobacterial culture, Aspergillus, TB test quant ? Pending AFB sputum cultures, collected 05/18 - Airbone precaution - Tylenol for pain #Hypertension Denies history of chronic hypertension but reports intermittent use of his parents not prescribed metoprolol 50 mg once daily as needed. He discontinue treatment for HTN following gastric bypass surgery, after which his blood pressure reportedly normalized. - CTM BP #HLD All medication includes atorvastatin 10 mg daily. Lipid panel 05/19: Trig 114, total cholesterol 125, LDL 68, HDL 34. Per pharmacy, efficacy of statin may be reduced while also taking Diflucan. Unclear if effects also happen vice versa. - Hold statin for now - Continue outpatient #NIDDM Hgb A1c 05/18 6.1. Per patient, previously NIDDM2 resolved s/p gastric bypass. - CTM glucose - Consider SSI if elevated Health Maintenance Disposition: med surg to rule out TB and cocci DVT prophylaxis: SCDs GI prophylaxis: Protonix Diet: Regular CODE STATUS: FULL Patient plan of care was discussed with the resident, Dr. Cruz, and attending physician, Dr. Julio. Amelie Burdick, PGY-1 Attending Provider Attestation/Addendum Face to face evaluation was performed by me. I have personally seen and examined the patient. I discussed the assessment and plan with the entire medicine team. I reviewed available medical records, imaging studies, laboratory results. I agree with the above subjective data, objective findings, assessment and plan except as corrected by me or noted below Left upper lobe cavitary lesion Pulmonary coccidiomycosis Shortness of breath due to above Fever due to above Continue fluconazole for coccidiomycosis, 3 sets of AFB were sent still pending results?TBD Doubt More than > 30 minutes spent on the encounter
[2025-05-19 12:00] VITALS: BP 129/77; PULSE 80; RESP 20; TEMP 36.1; O2SAT 98
[2025-05-19 16:00] VITALS: BP 153/94; PULSE 78; RESP 18; TEMP 36.3; O2SAT 97
[2025-05-19 20:00] VITALS: BP 114/67; PULSE 74; RESP 18; TEMP 36.6; O2SAT 98
[2025-05-19] MEDS: MELATONIN 3 MG TABLET PO (21:41)
[2025-05-20] VITALS (13 sets, daily range): BP systolic 110–151; BP diastolic 71–90; PULSE 57–98; RESP 14–20; TEMP 37.1–39.1; O2SAT 94–98; BMI 35.1
[2025-05-20] MEDS: ACETAMINOPHEN 325 MG TABLET 650 MG PO ×3 (00:56→17:54)
[2025-05-20 05:39] LABS: Basophils # (Auto) 0.1 Thou/mm3 (0.0-0.2); Basophils % (Auto) 1 % (0-2.5); Eosinophils # (Auto) 0.4 Thou/mm3 (0.0-0.5); Eosinophils % (Auto) 5 % (0-10); Hematocrit 38.1 % (41.0-53.0); Hemoglobin 12.9 g/dL (13.5-16.0); Immature Granulocytes Auto 0.08 Thou/mm3 (0.00-0.00); Lymphocytes # (Auto) 1.6 Thou/mm3 (1.0-4.8); Lymphocytes % (Auto) 18 % (10-50); Mean Corpuscular HGB Conc 33.9 g/dl (31.0-37.0); Mean Corpuscular Hemoglobin 29.2 pg (25.0-35.0); Mean Corpuscular Volume 86 fL (80-100); Monocytes # (Auto) 0.7 Thou/mm3 (0.0-0.8); Monocytes % (Auto) 9 % (0-12); Neutrophils # (Auto) 5.8 Thou/mm3 (1.8-7.7); Neutrophils % (Auto) 67 % (37-80); Nucleated Red Blood Cell # 0.00 Thou/mm3 (0.00-0.00); Nucleated Red Blood Cell % 0 /100 WBC (0); Platelet Count 263 Thou/mm3 (140-440); RDW Standard Deviation 35.7 fL (35.1-43.9); Red Blood Count 4.42 Miln/mm3 (4.50-5.90); White Blood Count 8.7 Thou/mm3 (3.8-10.6)
[2025-05-20 06:11] LABS: Alanine Aminotransferase 33 U/L (10-49); Albumin, Serum 4.1 gm/dL (3.5-5.0); Albumin/Globulin Ratio 1.3 (1.2-2.2); Alkaline Phosphatase 86 U/L (46-116); Anion Gap 9 (7-16); Aspartate Amino Transferase 24 U/L (0-34); BUN/Creatinine Ratio 7 Ratio (12-20); Bilirubin,Total 0.4 mg/dL (0.3-1.2); Blood Urea Nitrogen 7 mg/dL (9-23); Calcium 9.8 mg/dL (8.3-10.6); Calcium (Corrected) 9.8 mg/dL (8.5-10.1); Carbon Dioxide 29.4 mMol/L (20.0-31.0); Chloride 99 mMol/L (98-107); Creatinine (Component) 1.0 mg/dL (0.6-1.3); Estimated Creatinine Clearance 113.1 mL/min (>60); Globulin 3.1 gm/dL (2.3-3.5); Glucose 112 mg/dL (74-106); Magnesium 1.9 mg/dL (1.6-2.6); Osmolality,Calculated 272 (275-295); Phosphorous 3.9 mg/dL (2.4-5.1); Potassium 4.9 mMol/L (3.4-5.1); Sodium 137 mMol/L (136-145); Total Protein 7.2 gm/dL (5.7-8.2); eGFR > 60 See Note
[2025-05-20] MEDS: PROMETHAZINE/DM SYRUP 5 ML DOSE PO (08:17)
[2025-05-20] MEDS: FLUCONAZOLE 100 MG TABLET 400 MG PO (08:18)
[2025-05-20] MEDS: PANTOPRAZOLE 40 MG TABLET PO (08:18)
[2025-05-20] MEDS: BENZONATATE 100 MG CAPSULE 200 MG PO ×3 (10:15→21:25)
--- NOTE | 2025-05-20 10:57 | ESPR_ITS ---
Documentation for date of: 05/20/25 Subjective Subjective Interval history: Patient seen and examined in hospital bed reporting improvement in headache; however, still is reporting persistent coughing episodes. As a result, we will change patient's promethazine cough suppressant to Tessalon and encouraged incentive spirometer use. Patient otherwise denies having any concerning symptoms. Will contact infection control regarding patient's pending AFB samples. Exam Vital Signs Temp Pulse Resp BP Pulse Ox O2 Del Method 100.4 F 98 17 151/90 H 94 L Room Air 05/20/25 07:40 05/20/25 07:40 05/20/25 07:40 05/20/25 07:40 05/20/25 07:40 05/20/25 07:40 Narrative Exam Physical Exam: General: Awake, answering questions appropriately, spontaneous bouts of dry cough noted HEENT: Normocephalic, atraumatic, mucous membranes moist. Heart: Regular rate and rhythm, normal S1 and S2, no murmurs. Lungs: Decreased lung sounds in the left upper lobe. Clear in all other areas. No wheezing or rhonchi. Abdomen: Soft, nondistended, nontender, positive bowel sounds. No guarding or rebound tenderness. Extremities: No edema. Skin: No rash or ecchymoses. Neurologic: Alert and oriented x3, no gross neurological deficit, and patient able to move all 4 extremities. Objective Labs 05/20/25 04:26 05/20/25 04:26 Labs: Laboratory Results - last 24 hr 05/20/25 04:26 WBC 8.7 RBC 4.42 L Hgb 12.9 L Hct 38.1 L MCV 86 MCH 29.2 MCHC 33.9 RDW Std Deviation 35.7 Plt Count 263 Neut % (Auto) 67 Lymph % (Auto) 18 [place] % (Auto) 9 Eos % (Auto) 5 Baso % (Auto) 1 Neut # (Auto) 5.8 Lymph # (Auto) 1.6 [place] # (Auto) 0.7 Eos # (Auto) 0.4 Baso # (Auto) 0.1 Immature Gran # (Auto) 0.08 H Absolute Nucleated RBC 0.00 Immature Gran % 1 H Nucleated RBC % 0 Sodium 137 Potassium 4.9 D Chloride 99 Carbon Dioxide 29.4 Anion Gap 9 BUN 7 L Creatinine 1.0 Estim Creat Clear Calc 113.1 eGFR > 60 BUN/Creatinine Ratio 7 L Glucose 112 H Calculated Osmolality 272 L Calcium 9.8 Corrected Calcium 9.8 Phosphorus 3.9 Magnesium 1.9 Total Bilirubin 0.4 AST 24 ALT 33 Alkaline Phosphatase 86 Total Protein 7.2 Albumin 4.1 Globulin 3.1 Albumin/Globulin Ratio 1.3 Quality Measures Quality Measures none Assessment & Plan Assessment Current Active Medications: Generic Name Dose Route Start Last Admin Trade Name Freq PRN Reason Stop Dose Admin Acetaminophen 650 mg 05/18/25 08:48 05/20/25 00:56 Acetaminophen 325 Mg Tablet PO 06/16/25 22:07 650 mg Q6H PRN Administration Pain 1-3 or fever >100.3 Benzonatate 200 mg 05/20/25 10:00 05/20/25 10:15 Benzonatate 100 Mg Capsule PO 06/19/25 09:59 200 mg Q8HR PRISCILLA Administration Protocol Fluconazole 400 mg 05/18/25 16:30 05/20/25 08:18 Fluconazole 100 Mg Tablet PO 05/25/25 16:29 400 mg QDAY PRISCILLA Administration Ketorolac Tromethamine 15 mg 05/19/25 11:02 Ketorolac Inj 30 Mg/Ml Vial IVP 05/24/25 11:01 Q6HR PRN PAIN SCALE 4-10(Mod-Sev Melatonin 3 mg 05/19/25 21:00 05/19/25 21:41 Melatonin 3 Mg Tablet PO 06/18/25 20:59 3 mg HS PRISCILLA Administration Ondansetron HCl 4 mg 05/17/25 22:08 Ondansetron Inj 2 Mg/Ml Inj 2 Ml IVP 06/16/25 22:07 Q6H PRN NAUSEA OR VOMITING Protocol Pantoprazole Sodium 40 mg 05/18/25 09:00 05/20/25 08:18 Pantoprazole 40 Mg Tablet PO 06/17/25 08:59 40 mg QDAY PRISCILLA Administration Sennosides 1 tab 05/20/25 09:00 05/20/25 09:10 Senna Tablet PO 06/19/25 08:59 Not Given QDAY PRISCILLA Protocol Plan Patient is a 44-year-old male with past medical history of hypertension, hyperlipidemia, pre-diabetes, s/p gastric sleeve 2022 for 2-day history of flulike symptoms and later found to have left upper lobe cavitary lesion on CT, admitted for upper respiratory tract infection secondary, found to have coccidiomycosis infection; TB rule out pending. #Superior left cavitary lesion #c/f TB versus cocci #Headache Presented with 2-day history of fever, chills, body aches, later followed by dry nonproductive cough. Denies any weight loss, hemoptysis, night sweats. Denies recent travel or sick contacts. 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 Has never been tested for TB. Given environmental exposure, likely cocci. Per patient he went to an urgent care center prior to admission, tested negative for COVID-19 and influenza A&B. CXR 05/17 showed 4.6 cm dense consolidation versus pulmonary mass in the posterior left upper lobe Chest CT showed Cavitary pulmonary mass, 2.6 x 3.6 cm in the superior segment left lower lobe, too numerous to count bilateral subcentimeter pulmonary nodules Cocci IgM positive. Plan: ? Diflucan 400 mg daily (05/18- - Pending mycobacterial culture, Aspergillus, TB test quant ? Pending AFB sputum cultures, collected 05/18 - Airbone precaution - Tylenol for pain - Benzonatate 200 mg every 8 hours scheduled - Incentive spirometer #Hypertension Denies history of chronic hypertension but reports intermittent use of his parents not prescribed metoprolol 50 mg once daily as needed. He discontinue treatment for HTN following gastric bypass surgery, after which his blood pressure reportedly normalized. - CTM BP - Labile blood pressure, will continue to monitor and recommend following up with PCP #Hyperlipidemia All medication includes atorvastatin 10 mg daily. Lipid panel 05/19: Trig 114, total cholesterol 125, LDL 68, HDL 34. Per pharmacy, efficacy of statin may be reduced while also taking Diflucan. Unclear if effects also happen vice versa. - Hold statin for now - Continue outpatient #Prediabetes Hgb A1c 05/18 6.1. Per patient, previously NIDDM2 resolved s/p gastric bypass. - Monitor glucose levels Health Maintenance: Disposition: med surg to rule out TB, being treated for cocci DVT prophylaxis: SCDs GI prophylaxis: Not needed Bowel: Senna Diet: Regular CODE STATUS: FULL Patient seen and assessed with attending Dr. Ariel Cruz, DO PGY-2 Internal Medicine - [facility] Attending Provider Attestation/Addendum Face to face evaluation was performed by me. I have personally seen and examined the patient. I discussed the assessment and plan with the entire medicine team. I reviewed available medical records, imaging studies, laboratory results. I agree with the above subjective data, objective findings, assessment and plan except as corrected by me or noted below Left upper lobe cavitary lesion Pulmonary coccidiomycosis Shortness of breath due to above Fever due to above Still waiting for 3 sets of AFB to rule out active TB, continue fluconazole would probably need this 3-4 months of treatment, follow-up with PCP. Symptomatic therapy otherwise More than > 30 minutes spent on the encounter
--- NOTE | 2025-05-20 14:32 | PC.SS ---
Rounding: Pending AFBS, DC plan home
[2025-05-20] MEDS: MELATONIN 3 MG TABLET PO (21:25)
[2025-05-20] MEDS: KETOROLAC INJ 30 MG/ML VIAL 15 MG IVP (21:37)
[2025-05-21] VITALS (9 sets, daily range): BP systolic 110–148; BP diastolic 64–91; PULSE 62–95; RESP 16; TEMP 36.4–40.3; O2SAT 97–98
[2025-05-21] MEDS: BENZONATATE 100 MG CAPSULE 200 MG PO ×3 (05:42→21:04)
[2025-05-21 06:08] LABS: Basophils # (Auto) 0.1 Thou/mm3 (0.0-0.2); Basophils % (Auto) 1 % (0-2.5); Eosinophils # (Auto) 0.3 Thou/mm3 (0.0-0.5); Eosinophils % (Auto) 3 % (0-10); Hematocrit 38.4 % (41.0-53.0); Hemoglobin 13.4 g/dL (13.5-16.0); Immature Granulocytes Auto 0.10 Thou/mm3 (0.00-0.00); Lymphocytes # (Auto) 1.1 Thou/mm3 (1.0-4.8); Lymphocytes % (Auto) 10 % (10-50); Mean Corpuscular HGB Conc 34.9 g/dl (31.0-37.0); Mean Corpuscular Hemoglobin 29.6 pg (25.0-35.0); Mean Corpuscular Volume 85 fL (80-100); Monocytes # (Auto) 0.8 Thou/mm3 (0.0-0.8); Monocytes % (Auto) 7 % (0-12); Neutrophils # (Auto) 9.0 Thou/mm3 (1.8-7.7); Neutrophils % (Auto) 78 % (37-80); Nucleated Red Blood Cell # 0.00 Thou/mm3 (0.00-0.00); Nucleated Red Blood Cell % 0 /100 WBC (0); Platelet Count 301 Thou/mm3 (140-440); RDW Standard Deviation 34.7 fL (35.1-43.9); Red Blood Count 4.53 Miln/mm3 (4.50-5.90); White Blood Count 11.4 Thou/mm3 (3.8-10.6)
[2025-05-21 06:38] LABS: Alanine Aminotransferase 38 U/L (10-49); Albumin, Serum 4.2 gm/dL (3.5-5.0); Albumin/Globulin Ratio 1.2 (1.2-2.2); Alkaline Phosphatase 94 U/L (46-116); Anion Gap 11 (7-16); Aspartate Amino Transferase 30 U/L (0-34); BUN/Creatinine Ratio 12 Ratio (12-20); Bilirubin,Total 0.4 mg/dL (0.3-1.2); Blood Urea Nitrogen 12 mg/dL (9-23); Calcium 9.5 mg/dL (8.3-10.6); Calcium (Corrected) 9.5 mg/dL (8.5-10.1); Carbon Dioxide 27.8 mMol/L (20.0-31.0); Chloride 97 mMol/L (98-107); Creatinine (Component) 1.0 mg/dL (0.6-1.3); Estimated Creatinine Clearance 113.1 mL/min (>60); Globulin 3.5 gm/dL (2.3-3.5); Glucose 124 mg/dL (74-106); Magnesium 1.8 mg/dL (1.6-2.6); Osmolality,Calculated 272 (275-295); Phosphorous 2.7 mg/dL (2.4-5.1); Potassium 4.2 mMol/L (3.4-5.1); Sodium 136 mMol/L (136-145); Total Protein 7.7 gm/dL (5.7-8.2); eGFR > 60 See Note
[2025-05-21] MEDS: FLUCONAZOLE 100 MG TABLET 400 MG PO (08:19)
[2025-05-21] MEDS: ACETAMINOPHEN 325 MG TABLET 650 MG PO ×3 (08:51→20:40)
--- NOTE | 2025-05-21 09:26 | ESPR_ITS ---
Documentation for date of: 05/21/25 Subjective Subjective Interval history: Overnight, given melatonin 3 mg x 1 due to difficulty sleeping. Patient reports this morning does not help, will prescribe melatonin 6 mg nightly and Benadryl as needed. Endorses feeling feverish and chills last night. Continues to endorse headache and intermittent myalgias. Patient has Tylenol for fever and mild pain as needed, as well as IV ketorolac for moderate pain. Cough has improved with Tessalon Perles. Still pending AFB results as well as Aspergillus and TB quant. Will continue Diflucan 400 mg daily. Exam Vital Signs Temp Pulse Resp BP Pulse Ox O2 Del Method 97.6 F 83 16 138/89 H 98 Room Air 05/21/25 08:00 05/21/25 08:00 05/21/25 08:00 05/21/25 08:00 05/21/25 08:00 05/21/25 08:00 Narrative Exam Physical Exam General: Awake and in no acute distress. Conversational and non-toxic appearing. HEENT: Normocephalic, atraumatic, mucous membranes moist. Heart: Regular rate and rhythm, normal S1 and S2, no murmurs. Lungs: Decreased lung sounds in the left upper lobe. Clear in all other areas. No wheezing or rhonchi. Abdomen: Soft, nondistended, nontender, positive bowel sounds. No guarding or rebound tenderness. Neurologic: Alert and oriented x3, no gross neurological deficit, and patient able to move all 4 extremities. Extremities: No edema. Skin: No rash or ecchymoses. Objective Labs 05/22/25 05:22 05/22/25 05:22 Labs: Laboratory Results - last 24 hr 05/21/25 05:26 WBC 11.4 H RBC 4.53 Hgb 13.4 L Hct 38.4 L MCV 85 MCH 29.6 MCHC 34.9 RDW Std Deviation 34.7 L Plt Count 301 D Neut % (Auto) 78 Lymph % (Auto) 10 [place] % (Auto) 7 Eos % (Auto) 3 Baso % (Auto) 1 Neut # (Auto) 9.0 H Lymph # (Auto) 1.1 [place] # (Auto) 0.8 Eos # (Auto) 0.3 Baso # (Auto) 0.1 Immature Gran # (Auto) 0.10 H Absolute Nucleated RBC 0.00 Immature Gran % 1 H Nucleated RBC % 0 Sodium 136 Potassium 4.2 D Chloride 97 L Carbon Dioxide 27.8 Anion Gap 11 BUN 12 Creatinine 1.0 Estim Creat Clear Calc 113.1 eGFR > 60 BUN/Creatinine Ratio 12 Glucose 124 H Calculated Osmolality 272 L Calcium 9.5 Corrected Calcium 9.5 Phosphorus 2.7 Magnesium 1.8 Total Bilirubin 0.4 AST 30 ALT 38 Alkaline Phosphatase 94 Total Protein 7.7 Albumin 4.2 Globulin 3.5 Albumin/Globulin Ratio 1.2 Quality Measures Quality Measures none Assessment & Plan Assessment Current Active Medications: Generic Name Dose Route Start Last Admin Trade Name Freq PRN Reason Stop Dose Admin Acetaminophen 650 mg 05/18/25 08:48 05/21/25 08:51 Acetaminophen 325 Mg Tablet PO 06/16/25 22:07 650 mg Q6H PRN Administration Pain 1-3 or fever >100.3 Benzonatate 200 mg 05/20/25 10:00 05/21/25 05:42 Benzonatate 100 Mg Capsule PO 06/19/25 09:59 200 mg Q8HR PRISCILLA Administration Protocol Fluconazole 400 mg 05/18/25 16:30 05/21/25 08:19 Fluconazole 100 Mg Tablet PO 05/25/25 16:29 400 mg QDAY PRISCILLA Administration Ketorolac Tromethamine 15 mg 05/19/25 11:02 05/20/25 21:37 Ketorolac Inj 30 Mg/Ml Vial IVP 05/24/25 11:01 15 mg Q6HR PRN Administration PAIN SCALE 4-10(Mod-Sev Melatonin 3 mg 05/19/25 21:00 05/20/25 21:25 Melatonin 3 Mg Tablet PO 06/18/25 20:59 3 mg HS PRISCILLA Administration Ondansetron HCl 4 mg 05/17/25 22:08 Ondansetron Inj 2 Mg/Ml Inj 2 Ml IVP 06/16/25 22:07 Q6H PRN NAUSEA OR VOMITING Protocol Pantoprazole Sodium 40 mg 05/21/25 09:15 Pantoprazole 40 Mg Tablet PO 06/20/25 09:14 QDAY [facility] Sennosides 1 tab 05/20/25 09:00 05/21/25 08:25 Senna Tablet PO 06/19/25 08:59 Not Given QDAY [facility] Protocol Plan Patient is a 44-year-old male with past medical history of hypertension, hyperlipidemia, pre-diabetes, s/p gastric sleeve 2022 for 2-day history of flulike symptoms and later found to have left upper lobe cavitary lesion on CT, admitted for superior left cavitary lesion concerning for cocci and/or TB. #Superior left cavitary lesion #Pulmonary coccidiomycosis #c/f TB #Headache Presented with 2-day history of fever, chills, body aches, later followed by dry nonproductive cough. Denies any weight loss, hemoptysis, night sweats. Denies recent travel or sick contacts. 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 Has never been tested for TB. Given environmental exposure, likely cocci. Per patient he went to an urgent care center prior to admission, tested negative for COVID-19 and influenza A&B. CXR 05/17 showed 4.6 cm dense consolidation versus pulmonary mass in the posterior left upper lobe. Chest CT showed cavitary pulmonary mass, 2.6 x 3.6 cm in the superior segment left lower lobe, too numerous to count bilateral subcentimeter pulmonary nodules Cocci IgM positive. Plan: ? Diflucan 400 mg daily (05/18- - Pending mycobacterial culture, Aspergillus, TB test quant ? Pending AFB sputum cultures, collected 05/18 - Airbone precaution - Pain regimen: Tylenol, IV ketorolac #Hypertension Denies history of chronic hypertension but reports intermittent use of his parents not prescribed metoprolol 50 mg once daily as needed. He discontinued treatment for HTN following gastric bypass surgery, after which his blood pressure reportedly normalized. - CTM BP #HLD All medication includes atorvastatin 10 mg daily. Lipid panel 05/19: Trig 114, total cholesterol 125, LDL 68, HDL 34. Per pharmacy, efficacy of statin may be reduced while also taking Diflucan. Unclear if effects also happen vice versa. - Hold statin for now - Continue outpatient #NIDDM Hgb A1c 05/18 6.1. Per patient, previously NIDDM2 resolved s/p gastric bypass. - CTM glucose - Consider SSI if elevated Health Maintenance Disposition: med surg to rule out TB and cocci DVT prophylaxis: SCDs GI prophylaxis: Protonix Diet: Regular CODE STATUS: FULL Patient plan of care was discussed with the attending physician, Dr. George. Amelie Burdick, PGY-1 Attending Provider Attestation/Addendum Face to face evaluation was performed by me. I have personally seen and examined the patient. I discussed the assessment and plan with the entire medicine team. I reviewed available medical records, imaging studies, laboratory results. 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 Do not 3 sets of AFB pending to rule out active TB, isolation for now plan to discharge after AFBs x 3 negative. Ssuspect superimposed bacterial infection so no antibiotics added. More than > 30 minutes spent on the encounter
[2025-05-21] MEDS: PANTOPRAZOLE 40 MG TABLET PO (09:50)
[2025-05-21] MEDS: KETOROLAC INJ 30 MG/ML VIAL 15 MG IVP ×2 (10:05→16:14)
--- NOTE | 2025-05-21 16:17 | PC.SS ---
Rounding: Pending AFBS, DC plan home
[2025-05-21] MEDS: IBUPROFEN TAB 400 MG TABLET 800 MG PO (19:27)
[2025-05-21] MEDS: ONDANSETRON INJ 2 MG/ML INJ 2 ML 4 MG IVP (19:38)
[2025-05-21] MEDS: MELATONIN 3 MG TABLET 6 MG PO (20:39)
[2025-05-22] VITALS: BP 96/62; PULSE 66; RESP 19; TEMP 37; O2SAT 98
[2025-05-22 04:00] VITALS: BP 135/92; PULSE 72; RESP 18; TEMP 36.7; O2SAT 98
[2025-05-22] MEDS: BENZONATATE 100 MG CAPSULE 200 MG PO (05:00)
[2025-05-22 05:43] LABS: Basophils # (Auto) 0.1 Thou/mm3 (0.0-0.2); Basophils % (Auto) 1 % (0-2.5); Eosinophils # (Auto) 0.2 Thou/mm3 (0.0-0.5); Eosinophils % (Auto) 2 % (0-10); Hematocrit 41.8 % (41.0-53.0); Hemoglobin 14.4 g/dL (13.5-16.0); Immature Granulocytes Auto 0.17 Thou/mm3 (0.00-0.00); Lymphocytes # (Auto) 0.7 Thou/mm3 (1.0-4.8); Lymphocytes % (Auto) 7 % (10-50); Mean Corpuscular HGB Conc 34.4 g/dl (31.0-37.0); Mean Corpuscular Hemoglobin 29.3 pg (25.0-35.0); Mean Corpuscular Volume 85 fL (80-100); Monocytes # (Auto) 0.7 Thou/mm3 (0.0-0.8); Monocytes % (Auto) 7 % (0-12); Neutrophils # (Auto) 7.8 Thou/mm3 (1.8-7.7); Neutrophils % (Auto) 81 % (37-80); Nucleated Red Blood Cell # 0.00 Thou/mm3 (0.00-0.00); Nucleated Red Blood Cell % 0 /100 WBC (0); Platelet Count 224 Thou/mm3 (140-440); RDW Standard Deviation 35.0 fL (35.1-43.9); Red Blood Count 4.91 Miln/mm3 (4.50-5.90); White Blood Count 9.7 Thou/mm3 (3.8-10.6)
[2025-05-22 06:28] LABS: Alanine Aminotransferase 42 U/L (10-49); Albumin, Serum 4.1 gm/dL (3.5-5.0); Albumin/Globulin Ratio 1.2 (1.2-2.2); Alkaline Phosphatase 107 U/L (46-116); Anion Gap 11 (7-16); Aspartate Amino Transferase 46 U/L (0-34); BUN/Creatinine Ratio 10 Ratio (12-20); Bilirubin,Total 0.4 mg/dL (0.3-1.2); Blood Urea Nitrogen 10 mg/dL (9-23); Calcium 9.2 mg/dL (8.3-10.6); Calcium (Corrected) 9.2 mg/dL (8.5-10.1); Carbon Dioxide 25.9 mMol/L (20.0-31.0); Chloride 98 mMol/L (98-107); Creatinine (Component) 1.0 mg/dL (0.6-1.3); Estimated Creatinine Clearance 113.1 mL/min (>60); Globulin 3.4 gm/dL (2.3-3.5); Glucose 108 mg/dL (74-106); Magnesium 2.0 mg/dL (1.6-2.6); Osmolality,Calculated 270 (275-295); Phosphorous 3.8 mg/dL (2.4-5.1); Potassium 4.7 mMol/L (3.4-5.1); Sodium 135 mMol/L (136-145); Total Protein 7.5 gm/dL (5.7-8.2); eGFR > 60 See Note
[2025-05-22] MEDS: ACETAMINOPHEN 325 MG TABLET 650 MG PO (07:43)
[2025-05-22 08:00] VITALS: BP 133/79; PULSE 77; RESP 17; TEMP 36.4; O2SAT 97
[2025-05-22] MEDS: PANTOPRAZOLE 40 MG TABLET PO (08:33)
[2025-05-22] MEDS: FLUCONAZOLE 100 MG TABLET 400 MG PO (08:33)
--- NOTE | 2025-05-22 09:12 | PC.SS ---
Follow up note: Pt has out of [facility] health insurance. Pt will return home upon dc. AFBs are still pending.
--- NOTE | 2025-05-22 09:35 | PC.NURSE ---
Received call from infection prevention NICHOLAS Angulo., states patient can be removed from isolation, AFBx3 are negative.
--- NOTE | 2025-05-22 10:09 | PC.IP ---
3 Negative sputum AFBs results in [facility]. Joseph Faustin RN and Dr. Burdick MR made aware
--- NOTE | 2025-05-22 10:15 | ESDS_ITS ---
Planned Discharge Date 05/22/25 DS: Providers Provider Date of admission: 05/17/25 22:09 Primary care physician: Physician No Primary/Family Admitting Provider: Liliana Galicia MD Attending Provider on Admission: Antonio George MD Attending Provider on DC: Antonio George MD Discharging Provider: Amelie Burdick, RESIDENT DS: Diagnosis Problem List Completed Was Problem List Reviewed/Reconciled?: Yes Hospital Course Hospital Course Hospital course: Summary: Patient is a 44-year-old male with past medical history of hypertension, hyperlipidemia, pre-diabetes, s/p gastric sleeve 2022 for 2-day history of flulike symptoms and later found to have left upper lobe cavitary lesion on CT, admitted for superior left cavitary lesion concerning for cocci and/or TB. ED Course: -Initial vitals were BP 152/70, pulse 82, respiratory 20, temperature 99.9, O2 sat 99% -Labs significant for WBC 11.5, HCT 39.9, glucose 140, -Imaging: CXR showed 4.6 cm dense consolidation versus pulmonary mass in posterior left upper lobe, chest CT showed cavitary mass in superior segment left lower lobe with numerous bilateral pulmonary nodules -In the ED, patient was given acetaminophen, NS bolus, ibuprofen. Reason for hospitalization: Patient is a 44-year-old male with past medical history of hypertension, hyperlipidemia, pre-diabetes, s/p gastric sleeve 2022 for 2-day history of flulike symptoms and later found to have left upper lobe cavitary lesion on CT, admitted for superior left cavitary lesion concerning for cocci and/or TB. Tested positive for cocci. 3/3 AFB and NAAT were negative, negative for TB. Pending Aspergillus cultures and TB quant. Stared on Diflucan 400 mg daily, continue for another 6 months outpatient. Throughout hospital course, patient had intermittent fevers and bodyaches, treated symptomatically with Tylenol with improvement. Recommend continue adequate hydration and symptomatic treatment at home. Does not require isolation. Discharge Recommendations: -Follow-up with PCP within 1 week of discharge. If you do not have appointment, please follow-up with the [facility] with Dr. Craig. Call [phone] to make an appointment. -Follow up with liver panel as Fluconazole can interfere with the liver functions -Start Fluconazole 400mg once daily for 6 months and follow up with PCP for further management -Recommended to continue rest of the home medications -Return to ED if symptoms persist or return Hospital Diagnoses: #Superior left cavitary lesion #Pulmonary coccidiomycosis #TB ruled out #Headache #Hypertension #HLD #Hx NIDDM2 #Hx gastric bypass Disposition: Safe discharge to home. Patient plan of care was discussed with the attending physician, Dr. George. Amelie Burdick, PGY-1 Time Spent with Patient Time attestation: Total time spent providing and/or coordinating discharge services: At least 30 minutes of care coordination Time spent: Greater than 30 minutes Exam Vital Signs Temp Pulse Resp BP Pulse Ox O2 Del Method 97.6 F 77 17 133/79 H 97 Room Air 05/22/25 08:00 05/22/25 08:00 05/22/25 08:00 05/22/25 08:00 05/22/25 08:00 05/22/25 08:00 Narrative Exam Physical Exam General: Awake and in no acute distress. Conversational and non-toxic appearing. HEENT: Normocephalic, atraumatic, mucous membranes moist. Heart: Regular rate and rhythm, normal S1 and S2, no murmurs. Lungs: Clear to auscultation with no wheezing or crackles. Abdomen: Soft, nondistended, nontender, positive bowel sounds. No guarding or rebound tenderness. Neurologic: Alert and oriented x3, no gross neurological deficit, and patient able to move all 4 extremities. Extremities: No edema. Skin: No rash or ecchymoses. Discharge Plan Plan Patient Disposition: HOME (Self Care) Patient condition on transfer: Stable Care Plan Goals: -Follow-up with PCP within 1 week of discharge. If you do not have appointment, please follow-up with the [facility] with Dr. Craig. Call [phone] to make an appointment. -Follow up with Liver panel as Fluconazole can interfere with the liver functions -Start Fluconazole 400mg once daily for 6 months and follow up with PCP for further management -Recommended to continue rest of the home medications -Return to ED if symptoms persist or return Prescriptions/Referrals Prescriptions/Med Rec: New fluconazole 100 mg Tablet 400 mg PO QDAY Qty: 30 0RF Continued atorvastatin 10 mg tablet 10 mg PO DAILY Patient Comments: TAKE 1 TABLET BY MOUTH EVERY DAY ibuprofen 800 mg tablet 800 mg PO PRN PRN (Reason: pain) Patient Comments: TAKE 1 TABLET BY MOUTH EVERY 8 HOURS pantoprazole 40 mg tablet,delayed release (DR/EC) 40 mg PO DAILY Patient Comments: TAKE 1 TABLET BY MOUTH TWICE A DAY Referrals: No Primary/Family,Physician [Primary Care Provider] Patient/Caregiver Discharge Instructions Education Materials: Fluconazole tablets, Preventing Common Respiratory ..., Understanding Coccidioidomycosis Print Language: [place] Stand Alone Forms: [employer]ore[facility] Award Info., Patient Portal Info Letter Discharge Order Discharge Orders: Discharge (Routine); Ordered 05/22/25 Ordered By: Erik Craig Quality Discharge Quality Measures VTE prophylaxis Attestestation MD Attestation Face to face evaluation was performed by me. I have personally seen and examined the patient. I discussed the assessment and plan with the entire medicine team. I reviewed available medical records, imaging studies, laboratory results. 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 Discharged on fluconazole plan for 3-4 months course patient to follow-up with PCP for further refills and clinical improvement. Can repeat chest x-ray or CT lung in about 2-3 months to further evaluate cavitary lesion this is recommended for him discussed with him as well continue fluconazole as scheduled. Do not 3 sets of AFB pending to rule out active TB, isolation for now plan to discharge after AFBs x 3 negative. Ssuspect superimposed bacterial infection so no antibi otics added. More than > 30 minutes spent on the encounter
[2025-05-22 12:00] VITALS: BP 117/78; PULSE 73; RESP 18; TEMP 36.4; O2SAT 99
[2025-05-23 17:50] LABS: Index Value <0.50
[2025-05-25 06:59] LABS: Aspergillus Ag, Ser* NOT DETECTED
== END 2025-05-22 12:15 | disposition home or self-care (01) | DRG 179 ==
LOC: SERX 21:32 → SERHOLD 22:40 → S3SX 05-18 05:52 → S3NX 05-20 08:23
PROVIDERS: Internal Medicine; Physician Assistant; Admitting Provider Student in an Organized Health Care Education/Training Program; Emergency Provider Emergency Medicine; Visit Provider Internal Medicine
DX: B38.2 Pulmonary coccidioidomycosis, unspecified (principal); I10 Essential (primary) hypertension; E11.9 Type 2 diabetes mellitus without complications; R91.1 Solitary pulmonary nodule; R51.9 Headache, unspecified; E78.5 Hyperlipidemia, unspecified; F17.200 Nicotine dependence, unspecified, uncomplicated; Z78.9 Other specified health status; Z90.49 Acquired absence of other specified parts of digestive tract; Z98.84 Bariatric surgery status; Z79.84 Long term (current) use of oral hypoglycemic drugs; Z79.899 Other long term (current) drug therapy
CPT/HCPCS: 36415; 71046; 71250; 80053; 80061; 81001; 83036; 83735; 84100; 84443; 85025; 86480; 86635; 87015; 87116; 87205; 87206; 87305; 87400; 87811; 89220; 94640; 94664; 96374; 99285; A4649; J1885; J2405; A9270